=== PATIENT | female | born 1945 | race Hispanic/Latino ===

== ENCOUNTER 2016-08-20 11:14 | Day surgery (SDC) | payer MEDICARE ==
[~2016-08-20 11:14] MED LIST: IOPIDINE OD ONE; MYDRIACYL OD ONE; NEOFRIN OD ONE
[2016-08-20] MEDS ORDERED: MYDRIACYL OD ONE (12:24)
[2016-08-20] MEDS ORDERED: IOPIDINE OD ONE (12:24)
[2016-08-20] MEDS ORDERED: NEOFRIN OD ONE (12:24)
[2016-08-20 13:32] VITALS: BP 120/78
== END 2016-08-20 11:15 | disposition home or self-care (01) ==
LOC: OR 11:14
PROVIDERS: ATTEND Specialist
DX: H26.491 Other secondary cataract, right eye (principal)